=== PATIENT | male | born 1950 | race Caucasian/White ===

== ENCOUNTER 2016-08-04 11:38 | Day surgery (SDC) | payer OTHER ==
[2016-08-03] MEDS: SODIUM CHLOR 0.9% 1000 ML INJ 1,000 ML IV SCH (19:30)
[~2016-08-04] VITALS: Ht 177.8 cm; Wt 74.2 kg
[2016-08-04] VITALS (7 sets, daily range): BP systolic 142–187; BP diastolic 78–94; PULSE 57–64; RESP 16–18; TEMP 98.4–98.8; O2SAT 96–99
[2016-08-04] MEDS ORDERED: LIPI40TA PO (12:30)
[2016-08-04] MEDS ORDERED: CIAL20TA PO (12:30)
[2016-08-04] MEDS ORDERED: IBUP800T23 PO (12:30)
[2016-08-04] MEDS ORDERED: CALC600T10 PO (12:30)
[2016-08-04] MEDS ORDERED: ASPI81TA5 PO (12:30)
[2016-08-04] MEDS ORDERED: CENTTAB PO (12:30)
[2016-08-04] MEDS ORDERED: METO50TA11 PO (12:30)
[2016-08-04] MEDS ORDERED: DIOV160T6 PO (12:30)
[2016-08-04 12:43] LABS: AUTOMATED NEUTROPHIL # 5.7 TH/MM3 (1.8-7.7); BASOPHIL # 0.1 TH/MM3 (0-0.2); BASOPHIL % 0.8 % (0.0-2.0); EOSINOPHIL % 0.7 % (0.0-4.0); HEMATOCRIT 44.7 % (39.0-51.0); HEMO FLAGS DIFF FINAL; LYMPH % 9.8 % (9.0-44.0); LYMPHOCYTE # 0.7 TH/MM3 (1.0-4.8); MEAN CELL VOLUME 90.7 FL (80.0-100.0); MEAN CORPUSCULAR HEMOGLOBIN 30.9 PG (27.0-34.0); MEAN CORPUSCULAR HGB CONC 34.1 % (32.0-36.0); MONO % 7.7 % (0.0-8.0); PLATELET COUNT 168 TH/MM3 (150-450); RED BLOOD COUNT 4.93 MIL/MM3 (4.50-5.90); RED CELL DISTRIBUTION WIDTH 13.5 % (11.6-17.2)
[2016-08-04 12:52] LABS: APTT (PATIENT) 25.7 SEC (24.3-30.1); INTERNATIONAL NORMALIZED RATIO 0.9 RATIO; PROTHROMBIN TIME - PATIENT 10.2 SEC (9.8-11.6)
[2016-08-04] MEDS ORDERED: NS 1000P @30 MLS/HR (KVO) IV SCH (13:00)
[2016-08-04 13:06] LABS: BICARBONATE 29.5 MEQ/L (21.0-32.0)
[2016-08-04] MEDS ORDERED: HEPARIN-NS/PF INJ 500 ML ONE (13:30)
[2016-08-04] MEDS ORDERED: MIDAZOLAM HCL 2 MG/2 ML VIAL ONE ×2 (13:31→14:59)
[2016-08-04] MEDS ORDERED: HEPARIN SODIUM - IV 10,000 UNITS/10 ML VIAL ONE ×2 (13:31→14:05)
[2016-08-04] MEDS ORDERED: VERAPAMIL HCL 5 MG/2 ML VIAL ONE (13:31)
[2016-08-04] MEDS ORDERED: TIROFIBAN INFUSION INJ 250 ML IV ONE (14:06)
[2016-08-04] MEDS ORDERED: ATROPINE SULFATE 1 MG/10 ML SYRINGE ONE (14:53)
[2016-08-04] MEDS ORDERED: TICAGRELOR 90 MG TAB PO ONE (16:29)
[2016-08-04] MEDS ORDERED: TIROFIBAN INFUSION INJ 250 ML IV SCH (16:54)
[2016-08-04] MEDS ORDERED: TEMAZEPAM 15 MG CAP PO PRN (17:00)
[2016-08-04] MEDS ORDERED: MISC INFORMATION XX ONE (17:00)
[2016-08-04] MEDS ORDERED: SODIUM CHLORIDE 0.9% FLUSH 10 ML FLUSH IV FLUSH PRN (17:15)
[2016-08-04] MEDS: SODIUM CHLORIDE 0.9% FLUSH 10 ML FLUSH IV FLUSH SCH (21:00)
[2016-08-05] VITALS (11 sets, daily range): BP systolic 159–174; BP diastolic 77–87; PULSE 52–69; RESP 16–18; TEMP 98–98.7; O2SAT 99–100
[2016-08-05] MEDS: SODIUM CHLOR 0.9% 1000 ML INJ 1,000 ML IV SCH (02:54)
--- NOTE | 2016-08-05 05:56 | MA ---
cc: PASTOR KELLER M.D., GLENN H. M.D. DATE 08/04/2016 PROCEDURE Selective coronary angiography, angioplasty and stent of the mid-LAD, difficult angioplasty and stent of the proximal left circumflex, very difficult angioplasty and unsuccessful stenting of the proximal and distal right coronary. PROCEDURE NOTES The patient was brought to the cardiac catheterization laboratory in a fasting state after having signed informed consent. The right radial region was prepped and draped as per policy and anesthetized with 1% lidocaine. Arterial access was obtained via the right radial artery and a 6-[place] sheath placed. Coronary arteriography was performed using a [place] catheter. Left ventriculography was not done. Percutaneous coronary intervention was done as described below. There were no apparent immediate complications. HEMODYNAMIC RESULTS Aorta 108/54 with a mean of 76. CORONARY ARTERIOGRAPHY The left main is normal. The left anterior descending gives rise to a relatively large branching diagonal which has diffuse ostial to proximal disease resulting in up to 15% stenosis. The proximal LAD also has diffuse disease, probably up to 25% stenosis. The mid-LAD has a discrete tubular lesion which results in 95% stenosis. The distal-third of the mid-LAD has 30% stenosis. The very distal LAD has minimal luminal irregularities. The left circumflex is a relatively large codominant vessel giving rise to a tiny first obtuse marginal, small second and third obtuse marginals and fairly small posterolateral branches. In the proximal left circumflex there is somewhat eccentric, up to 85% stenosis. The second obtuse marginal arising from the mid-left circumflex has 15% proximal stenosis. The third obtuse marginal and distal left circumflex appears to overall have minimal luminal irregularities. The right coronary is a tortuous vessel which is moderately calcified proximally. There is diffuse proximal disease resulting in what appears to be a 50-60% stenosis. A right ventricular branch has 80% ostial stenosis. The distal right coronary has 95% stenosis right at a fairly acute bend in the vessel. LEFT VENTRICULOGRAPHY Not done. PERCUTANEOUS CORONARY INTERVENTION DESCRIPTION Aggrastat was given as per protocol. Adequate heparin was given during the procedure to achieve an ACT greater than 250 seconds. Using a 6-[place] XB 3.5 guiding catheter the ostium of the left main was re-engaged. Using a 0.014 [place] guidewire the mid-LAD stenosis was crossed without difficulty and the tip of the wire positioned distally. Predilation was done using a 2.5-mm Euphora balloon catheter. Stenting was done using a 2.5 x 18-mm Resolute stent which was postdilated using a 2.5-mm Non-Compliant Euphora balloon catheter. Final angiography shows reduction of the initial stenosis to roughly 10% residual with no evidence for dissection or distal embolization. The [place] guidewire was retracted. We attempted to wire the proximal left circumflex stenosis with great difficulty as there does appear to be a tortuous bend right after the lesion. We attempted double wiring without success. We then advanced a balloon over one of the wires which enabled advancement of the wire distally. Predilation was done using a 2.5-mm Euphora balloon catheter. Stenting was done using a 2.5 x 18-mm Resolute stent. Post-dilation was again done using a 2.5-mm Non-Compliant Euphora balloon catheter. Final angiography shows overall reduction of the initial stenosis to roughly 10% residual with no definite evidence for dissection or distal embolization. The guiding catheter was then exchanged for a hockey-stick guide with side holes. We attempted to advance a [place] guidewire distally. It would not traverse tortuous turns in the mid-vessel. We then also tried chandu wiring with a Run-Through wire. Once again we could not traverse the tortuous mid-section. Then we advanced a 2.0-mm balloon catheter to the tip of the Run-Through wire enabling advancement of the wire distally. Predilation was done using this balloon catheter in the proximal vessel where there is moderate calcification which impeded advancement of a 2.0-mm balloon catheter distally. We tried to advance a 2.25-mm Resolute stent distally. It would not traverse the proximal vessel. Similarly we were unable to advance a 2.0-mm Euphora balloon catheter to the distal vessel. A Guideliner was placed. With great difficulty 1.5-mm Euphora balloon catheter was advanced as far as possible, this time only to the mid-vessel where it was inflated a number of times as well as in the proximal vessel. Further of predilation of the mid to proximal vessel was done using a 2.0-mm Euphora balloon catheter. Once again, we are unable to advance a balloon distally. We then placed an All-Star wire into the vessel in order to further straighten the tortuous turns. However, we were unable to advance this wire past the distal lesion. We also tried advancing a balloon catheter to the tip of the All-Star wire. We were similarly unable to advance a balloon catheter. We then placed a 2.0-mm Emerge balloon catheter over the Run-Through. With difficulty we were able to advance this balloon catheter to the distal lesion. A number of balloon inflations were done distally. We tried once again to advance a stent distally without success. At this point we decided to balloon the vessel as best as possible. Further predilation was done distally using a 2.5-mm Emerge balloon catheter. Balloon inflations using a 3.0-mm Euphora balloon catheter were also done in the proximal to mid-vessel. Final angiography shows reduction of the proximal to mid disease to approximately 10% residual. The distal lesion has improved although there is residual 60-70% stenosis. The patient tolerated the procedures well. There were no apparent immediate complications. He was thoroughly sedated throughout the case. CONCLUSIONS 1. Severe three-vessel coronary artery disease. 2. Co-dominant system. 3. Status post angioplasty and stent of the mid-LAD. 4. Status post difficult angioplasty and stent to the proximal left circumflex. 5. Status post very difficult angioplasty and unsuccessful stenting of the proximal, mid, and distal right coronary. DISCUSSION The patient's residual right coronary disease will be treated medically. There appears to be residual at least 60-70% distal stenosis although the lesion has angiographically improved. Despite extensive attempts, we were unable to advance a stent to the distal vessel likely due to tortuosity of the vessel and calcification proximally. In addition, there was considerable difficulty manipulating some balloon catheters and guidewires through the radial artery approach as there may be a loop that was traversed. In the future if consideration were to be made to repeat attempt at stenting the distal right coronary, a femoral artery approach may be advantageous. MD DAYSI Mcdonnell/RICH /4:41 PM /5:39 AM CONSTANTINO
[2016-08-05 07:02] LABS: AUTOMATED NEUTROPHIL # 5.9 TH/MM3 (1.8-7.7); BASOPHIL % 0.5 % (0.0-2.0); EOSINOPHIL # 0.1 TH/MM3 (0-0.4); EOSINOPHIL % 1.9 % (0.0-4.0); HEMATOCRIT 38.6 % (39.0-51.0); HEMO FLAGS DIFF FINAL; LYMPH % 5.8 % (9.0-44.0); LYMPHOCYTE # 0.4 TH/MM3 (1.0-4.8); MEAN CELL VOLUME 91.3 FL (80.0-100.0); MEAN CORPUSCULAR HEMOGLOBIN 30.8 PG (27.0-34.0); MEAN CORPUSCULAR HGB CONC 33.7 % (32.0-36.0); MONO % 8.8 % (0.0-8.0); PLATELET COUNT 127 TH/MM3 (150-450); RED BLOOD COUNT 4.22 MIL/MM3 (4.50-5.90); RED CELL DISTRIBUTION WIDTH 13.4 % (11.6-17.2); WHITE BLOOD COUNT 7.1 TH/MM3 (4.0-11.0)
[2016-08-05 07:44] LABS: BICARBONATE 26.4 MEQ/L (21.0-32.0); HDL CHOLESTEROL 50.6 MG/DL (40.0-60.0); POTASSIUM 3.9 MEQ/L (3.5-5.1)
--- NOTE | 2016-08-05 08:24 | PD.CARD.PN ---
Subjective Subjective Remarks Denies CP, right arm pain, dyspnea, dizziness. Feels "great". Objective Medications Item Value Date Time Aspirin 81 mg 08/05/16 09 (Aspirin Chew) DAILY/PO Ticagrelor 90 mg 08/05/16 0900 (Brilinta) BID/PO Tirofiban/Sodium 250 ml @ 13.356 mls/hr 08/04/16 1654 Chloride [id number] 08/05/16 0511 Vital Signs / I&O Vital Signs Date Time Temp Pulse Resp B/P Pulse Ox O2 Delivery O2 Flow Rate FiO2 08/05/16 05:18 69 08/05/16 04:00 69 08/05/16 03:38 98.0 58 18 159/77 99 08/05/16 03:00 52 08/05/16 02:00 52 08/05/16 01:03 52 08/05/16 00:06 56 08/04/16 23:00 61 08/04/16 23:00 98.8 57 16 142/78 99 08/04/16 22:00 60 08/04/16 21:00 63 08/04/16 20:00 60 08/04/16 19:57 98.8 64 18 154/80 99 08/04/16 19:00 60 08/04/16 16:50 100 Room Air 08/04/16 12:18 98.4 60 17 187/94 96 I/O 08/04/16 08/04/16 08/04/16 08/05/16 08/05/16 08/05/16 07:00 15:00 23:00 07:00 15:00 23:00 Intake Total 1602 ml Output Total 1050 ml Balance 552 ml Intake Oral 240 ml IV Total 1362 ml Output Urine Total 1050 ml Physical Exam GENERAL: Well developed, well nourished. No acute distress. HEENT: Jugular venous pressure is normal. CHEST: Lungs clear to auscultation bilaterally. Unlabored respiratory effort. CARDIAC: Regular rate and rhythm without S3, S4, or murmur. ABDOMEN: Soft, nontender, no hepatosplenomegaly. Bowel sounds present. EXTREMITIES: No clubbing, cyanosis, or edema. Right radial region stable, good capillary refill. Laboratory Laboratory Tests Test 08/04/16 08/05/16 12:09 05:39 White Blood Count 7.0 TH/MM3 7.1 TH/MM3 Red Blood Count 4.93 MIL/MM3 4.22 MIL/MM3 Hemoglobin 15.2 GM/DL 13.0 GM/DL Hematocrit 44.7 % 38.6 % Mean Corpuscular Volume 90.7 FL 91.3 FL Mean Corpuscular Hemoglobin 30.9 PG 30.8 PG Mean Corpuscular Hemoglobin 34.1 % 33.7 % Concent Red Cell Distribution Width 13.5 % 13.4 % Platelet Count 168 TH/MM3 127 TH/MM3 Mean Platelet Volume 7.1 FL 7.2 FL Neutrophils (%) (Auto) 81.0 % 83.0 % Lymphocytes (%) (Auto) 9.8 % 5.8 % Monocytes (%) (Auto) 7.7 % 8.8 % Eosinophils (%) (Auto) 0.7 % 1.9 % Basophils (%) (Auto) 0.8 % 0.5 % Neutrophils # (Auto) 5.7 TH/MM3 5.9 TH/MM3 Lymphocytes # (Auto) 0.7 TH/MM3 0.4 TH/MM3 Monocytes # (Auto) 0.5 TH/MM3 0.6 TH/MM3 Eosinophils # (Auto) 0.0 TH/MM3 0.1 TH/MM3 Basophils # (Auto) 0.1 TH/MM3 0.0 TH/MM3 CBC Comment DIFF FINAL DIFF FINAL Differential Comment Prothrombin Time 10.2 SEC Prothromb Time International 0.9 RATIO Ratio Activated Partial 25.7 SEC Thromboplast Time Sodium Level 135 MEQ/L 137 MEQ/L Potassium Level 4.0 MEQ/L 3.9 MEQ/L Chloride Level 96 MEQ/L 103 MEQ/L Carbon Dioxide Level 29.5 MEQ/L 26.4 MEQ/L Anion Gap 10 MEQ/L 8 MEQ/L Blood Urea Nitrogen 11 MG/DL 11 MG/DL Creatinine 1.09 MG/DL 0.88 MG/DL Estimat Glomerular Filtration 68 ML/MIN 87 ML/MIN Rate Random Glucose 102 MG/DL 96 MG/DL Calcium Level 9.6 MG/DL 8.3 MG/DL Total Creatine Kinase 147 U/L Triglycerides Level 159 MG/DL Cholesterol Level 133 MG/DL LDL Cholesterol 51 MG/DL HDL Cholesterol 50.6 MG/DL Cholesterol/HDL Ratio 2.62 RATIO Assessment and Plan Problem List: (1) CAD (coronary artery disease) Assessment and Plan: Stable s/p difficult cath, stent LAD, stent left circumflex, PTCA RCA. Right radial arteriotomy site stable. AM labs OK. To discharge today, same home medications plus Brilinta, f/u with Dr. Boogie. Code Status full code Discussed Condition With patient Problem Qualifiers (1) CAD (coronary artery disease): Qualified Code: I25.10 - Coronary artery disease involving burns [place] coronary artery of burns [place] heart without angina pectoris Endy Diaz MD Aug 05, 2016 08:23
[2016-08-05] MEDS ORDERED: BRIL90TA PO (08:25)
[2016-08-05] MEDS: SODIUM CHLORIDE 0.9% FLUSH 10 ML FLUSH IV FLUSH SCH (08:28)
[2016-08-05] MEDS ORDERED: TICAGRELOR 90 MG TAB PO SCH (09:00)
[2016-08-05] MEDS ORDERED: ASPIRIN 81 MG CHEW TAB PO SCH (09:00)
--- NOTE | 2016-08-05 12:59 | EKG ---
Date Performed: 08/04/2016 Time Performed: 12:29:14 PTAGE: 65 years EKG: Sinus bradycardia Possible septal infarct - age undetermined Abnormal ECG NO PREVIOUS TRACING DOCTOR: Endy Diaz Interpretating Date/Time 08/05/2016 12:59:05
== END 2016-08-05 11:02 | disposition home or self-care (01) ==
LOC: HDIC 11:38 → HDOC 11:38 → HCIN 19:12 → HDOC 08-05 11:02
PROVIDERS: ATTEND Internal Medicine Cardiovascular Disease
DX: I25.10 Atherosclerotic heart disease of native coronary artery without angina pectoris (principal); R00.1 Bradycardia, unspecified; Z79.01 Long term (current) use of anticoagulants
CPT/HCPCS: 80048; 80061; 82550; 85002; 85025; 85610; 85730; 92920; 92928; 92929; 93005; 93454; C1725; C1769; C1874; C1887; C1893; J0461; J1644; J2250; J3246; J7030